=== PATIENT | female | born 1975 | race Caucasian/White ===

== ENCOUNTER 2016-12-31 12:40 | Emergency (ER) | payer OTHER ==
[2016-12-31 12:53] VITALS: RESP 16
--- NOTE | 2016-12-31 14:38 | EDPHY ---
H & P Stated Complaint: CP sub sternal 3 weeks, - Personal History LMP (Females 10-55): IUD In Place Current Tetanus/Diphtheria Vaccine: Unsure Current Tetanus Diphtheria and Acellular Pertussis (TDAP): Unsure - Medical/Surgical History Hx Asthma: Yes Hx Chronic Respiratory Disease: No Hx Diabetes: No Hx Cardiac Disease: No Hx Renal Disease: No Hx Cirrhosis: No Hx Alcoholism: No Hx HIV/AIDS: No Hx Splenectomy or Spleen Trauma: No Other PMH: multiple pneumonias, asthma, high cholesterol, pre-diabetic, MARTY, RUPTURE GB, C-SECT X3, ECTOPIC - Social History Smoking Status: Never smoked Time Seen by Provider: 12/31/16 14:30 HPI/ROS: CHIEF COMPLAINT: chest pain x3 weeks HISTORY OF PRESENT ILLNESS: 41-year-old female history of diabetes, obesity, complaining of 3 weeks on and off left-sided chest pain which does not appear to follow definitive pattern. It will sometimes occur while she is at rest as it did today when she was sitting at her desk and felt approximately 5 minutes of left-sided chest pain without radiation. She also notes that 4 nights ago and she was out dancing and the did not experience chest pain with exertion, did experience dyspnea with exertion, however when she was leaving the club she felt sudden onset of left-sided chest pain which lasted 5 minutes and was associated with near-syncope, dizziness, diaphoresis. PRIMARY CARE PROVIDER: ZAFAR Aguiar REVIEW OF SYSTEMS: A ten point review of systems was performed and is negative with the exception of the items mentioned in the HPI PAST MEDICAL & SURGICAL HISTORY: cholecystectomy. Diabetes SOCIAL HISTORY:think nonsmoker. No drug use. FAMILY HISTORY: No pertinent family history PHYSICAL EXAM (Prior to examination, patient consented to physical exam, hands were washed and my usual and customary physical exam procedures followed) 1) GENERAL: Obese,, alert and oriented. Appears to be in no acute distress. 2) HEAD: Normocephalic, atraumatic 3) HEENT: Pupils equal, round, reactive to light bilaterally. Sclera anicteric. Nasopharynx, oropharynx, clear, no lesions. Ears bilaterally with normal tympanic membranes. 4) NECK: Full range of motion, no meningeal signs. no bruit 5) LUNGS: Clear auscultation bilaterally, no wheezes, no rhonchi, no retractions. 6) HEART: Regular rate and rhythm, no murmur, no heave, no gallop. 7) ABDOMEN: No guarding, no rebound, no focal tenderness, negative McBurney's, negative Collazo's, negative Rovsing's, negative peritoneal sign, 8) MUSCULOSKELETAL: Moving all extremities, no focal areas of tenderness, no obvious trauma. No peripheral edema or discoloration. Negative Homans no palpable cord 9) BACK: No CVA tenderness, no midline vertebral tenderness, no fluctuance, no step-off, no obvious trauma, no visual or palpable abnormality. 10) SKIN: No rash, no petechiae. 11) Psychiatric: Patient is oriented X 3, there is no agitation. DIFFERENTIAL DIAGNOSIS: In no particular order, including but not limited to myocardial ischemia, pulmonary embolus, chest wall pain, pleural inflammation and pulmonary infectious causes. (Elaina Navarro) Constitutional: Initial Vital Signs Temperature (C) 36.7 C 12/31/16 12:49 Heart Rate 81 12/31/16 12:49 Respiratory Rate 16 12/31/16 12:49 Blood Pressure 122/88 H 12/31/16 12:49 O2 Sat (%) 95 12/31/16 12:49 O2 Delivery Mode Room Air Allergies/Adverse Reactions: Iodinated Contrast Media - Oral and [Iodinated Contrast Media - IV Dye] Allergy (Severe, Verified 12/31/16 12:53) Hives Home Medications: Medication Instructions Recorded Atorvastatin Calcium 12/31/16 Metformin HCl 12/31/16 Wellbutrin Xl 12/31/16 Medical Decision Making - Diagnostics EKG Interpretation: 12-lead EKG interpreted by me; official reading is in trace master. My interpretation is sinus rhythm, borderline left axis, no acute ischemic changes. (Altaf Connors) Imaging: Portable Chest, Single View 2:37 PM Indication: Shortness of breath and chest pain Comparison: None Findings: The heart is borderline enlarged for portable AP technique. No pneumothorax, pulmonary edema, consolidation or effusion. Lungs are hypoventilated. Images reviewed by myself images reviewed by myself Impression: 1. Clear lungs. No acute process. 2. Borderline Rogelio. Dictated By: Rigo Gillis MD Images reviewed by myself (Elaina Navarro) ED Course/Re-evaluation: Patient re-evaluated with serial exams, discussed case Dr. Altaf Connors in the ER. Phone consultation Dr. Herman Reynoso at 3:44 pm about getting the the patient treadmill stress tested. Doubt acute AL. Doubt PE. 4:25 p.m.: I spoke with the front office staff with Dr. Donaldo Reynoso, patient is scheduled for stress testing tomorrow (01/01) at 2:00 p.m. at [address] (Elaina Navarro) Other Provider: PHYSICIAN DOCUMENTATION: The patient was evaluated and managed by the Physician Virtual Office Assistant and myself. I have reviewed the chart and agree with the findings and plan of care as documented. In addition, I examined the patient myself at 1540. History confirmed as on and off chest pain for 3 weeks with a 5 minutes episode today. Had negative stress test 15 year ago for similar symptoms. EKG and labs reviewed. Agree with plan for discharge with outpatient stress testing. I am the secondary supervising physician. (Altaf Connors) - Data Points Laboratory Results: Laboratory Results 12/31/16 14:30 12/31/16 14:30 12/31/16 12/31/16 12/31/16 14:55 14:30 14:30 WBC RBC Hgb Hct MCV MCH MCHC RDW Plt Count MPV Neut % (Auto) Lymph % (Auto) Thomas % (Auto) Eos % (Auto) Baso % (Auto) Nucleat RBC Rel Count Absolute Neuts (auto) Absolute Lymphs (auto) Absolute Monos (auto) Absolute Eos (auto) Absolute Basos (auto) Absolute Nucleated RBC Immature Gran % Immature Gran # D-Dimer 0.34 ug/mLFEU ug/mLFEU REJ (0.00-0.50) Sodium Potassium Chloride Carbon Dioxide Anion Gap BUN Creatinine Estimated GFR Glucose Calcium Total Bilirubin Conjugated Bilirubin Unconjugated Bilirubin AST ALT Alkaline Phosphatase Troponin I Total Protein Albumin Lipase Beta HCG, Qual NEGATIVE 12/31/16 12/31/16 14:30 14:30 WBC 9.20 10^3/uL 10^3/uL (3.80-9.50) RBC 4.82 10^6/uL 10^6/uL (4.18-5.33) Hgb 14.7 g/dL g/dL (12.6-16.3) Hct 44.1 % % (38.0-47.0) MCV 91.5 fL fL (81.5-99.8) MCH 30.5 pg pg (27.9-34.1) MCHC 33.3 g/dL g/dL (32.4-36.7) RDW 13.2 % % (11.5-15.2) Plt Count 284 10^3/uL 10^3/uL (150-400) MPV 10.7 fL fL (8.7-11.7) Neut % (Auto) 61.5 % % (39.3-74.2) Lymph % (Auto) 32.3 % % (15.0-45.0) Thomas % (Auto) 4.6 % % (4.5-13.0) Eos % (Auto) 1.2 % % (0.6-7.6) Baso % (Auto) 0.2 % L % (0.3-1.7) Nucleat RBC Rel Count 0.0 % % (0.0-0.2) Absolute Neuts (auto) 5.66 10^3/uL 10^3/uL (1.70-6.50) Absolute Lymphs (auto) 2.97 10^3/uL 10^3/uL (1.00-3.00) Absolute Monos (auto) 0.42 10^3/uL 10^3/uL (0.30-0.80) Absolute Eos (auto) 0.11 10^3/uL 10^3/uL (0.03-0.40) Absolute Basos (auto) 0.02 10^3/uL 10^3/uL (0.02-0.10) Absolute Nucleated RBC 0.00 10^3/uL 10^3/uL (0-0.01) Immature Gran % 0.2 % % (0.0-1.1) Immature Gran # 0.02 10^3/uL 10^3/uL (0.00-0.10) D-Dimer Sodium 143 mEq/L mEq/L (134-144) Potassium 3.9 mEq/L mEq/L (3.5-5.2) Chloride 104 mEq/L mEq/L (97-110) Carbon Dioxide 26 mEq/l mEq/l (22-31) Anion Gap 13 mEq/L mEq/L (8-16) BUN 14 mg/dL mg/dL (7-23) Creatinine 0.6 mg/dL mg/dL (0.6-1.0) Estimated GFR > 60 Glucose 104 mg/dL H mg/dL (70-100) Calcium 9.9 mg/dL mg/dL (8.5-10.4) Total Bilirubin 0.6 mg/dL mg/dL (0.1-1.4) Conjugated Bilirubin 0.4 mg/dL mg/dL (0.0-0.5) Unconjugated Bilirubin 0.2 mg/dL mg/dL (0.0-1.1) AST 21 IU/L IU/L (14-46) ALT 32 IU/L IU/L (9-52) Alkaline Phosphatase 123 IU/L IU/L (38-126) Troponin I < 0.012 ng/mL ng/mL (0-0.034) Total Protein 7.6 g/dL g/dL (6.3-8.2) Albumin 4.4 g/dL g/dL (3.5-5.0) Lipase 75.0 IU/L IU/L (23-300) Beta HCG, Qual Departure - Departure Disposition: Home, Routine, Self-Care Clinical Impression: Chest pain Qualifiers: Chest pain type: unspecified Qualified Code(s): R07.9 - Chest pain, unspecified Condition: Good Instructions: Chest Pain (ED) Additional Instructions: You have an appointment tomorrow at 2:00 p.m. for exercise treadmill test, where exercise clothing, do not have anything to eat within 2 hours, do not have any caffeine within 12 hours. Arrive by 1:45 pm to check an Referrals: Donaldo Reynoso MD [Medical Doctor] - 01/01/17 2:00 pm (Show up by 1:45 pm, Wear exercise clothing, do not have anything to eat within 2 hours of your appointment, do not have any caffeine within 12 hours of your appointment.)
--- NOTE | 2016-12-31 14:42 | CPEKG ---
Heart Rate: 70 RR Interval: 857 P-R Interval: 180 QRSD Interval: 102 QT Interval: 388 QTC Interval: 419 P [place]: 38 QRS [place]: -16 T Wave [place]: 10 EKG Severity - BORDERLINE ECG - EKG Impression: SINUS RHYTHM EKG Impression: BORDERLINE LEFT AXIS DEVIATION EKG Impression: BORDERLINE T ABNORMALITIES, ANTERIOR LEADS Electronically Signed By: Altaf Connors 31-Dec-2016 14:42:47
[2016-12-31 14:44] LABS: % IMMATURE GRANULYOCYTES 0.2 % (0.0-1.1); ABSOLUTE IMMATURE GRANULOCYTES 0.02 10^3/uL (0.00-0.10); ADD DIFF? NO; ADD MORPH? NO; ADD SCAN? NO; ATYPICAL LYMPHOCYTE FLAG 0 (0-99); FRAGMENT RBC FLAG 0 (0-99); HEMATOCRIT 44.1 % (38.0-47.0); HEMOGLOBIN 14.7 g/dL (12.6-16.3); LEFT SHIFT FLG 0 (0-99); LIPEMIA HEMOLYSIS FLAG 80 (0-99); MEAN CELL HEMOGLOBIN 30.5 pg (27.9-34.1); MEAN CELL HEMOGLOBIN CONCENTR. 33.3 g/dL (32.4-36.7); MEAN CELL VOLUME 91.5 fL (81.5-99.8); MEAN PLATELET VOLUME 10.7 fL (8.7-11.7); PLATELET CLUMPS FLAG 0 (0-99); PLATELET COUNT 284 10^3/uL (150-400); RED BLOOD CELL COUNT 4.82 10^6/uL (4.18-5.33); RED CELL DISTRIBUTION WIDTH 13.2 % (11.5-15.2)
[2016-12-31] MEDS ORDERED: ASPIRIN 81 MG CHEWABLE TAB ONE (14:47)
[2016-12-31 15:08] LABS: ALANINE AMINOTRANSFERASE 32 IU/L (9-52); ALBUMIN 4.4 g/dL (3.5-5.0); ALKALINE PHOSPHATASE 123 IU/L (38-126); ANION GAP 13 mEq/L (8-16); ASPARTATE AMINOTRANSFERASE 21 IU/L (14-46); BILIRUBIN,TOTAL 0.6 mg/dL (0.1-1.4); BILIRUBIN-CONJUGATED 0.4 mg/dL (0.0-0.5); BILIRUBIN-UNCONJUGATED 0.2 mg/dL (0.0-1.1); CALCIUM 9.9 mg/dL (8.5-10.4); CARBON DIOXIDE 26 mEq/l (22-31); CHLORIDE 104 mEq/L (97-110); CREATININE 0.6 mg/dL (0.6-1.0); GLOMERULAR FILTRATION RATE > 60; GLUCOSE 104 mg/dL (70-100); POTASSIUM 3.9 mEq/L (3.5-5.2); SODIUM 143 mEq/L (134-144); TOTAL PROTEIN 7.6 g/dL (6.3-8.2)
[2016-12-31 15:19] LABS: TROPONIN I < 0.012 ng/mL (0-0.034)
[2016-12-31 16:41] VITALS: BP 117/75; PULSE 71; TEMP 98.4; O2SAT 92
== END 2016-12-31 16:40 | disposition home or self-care (01) ==
DX: R07.9 Chest pain, unspecified (principal); J45.909 Unspecified asthma, uncomplicated